=== PATIENT | female | born 1995 | race Caucasian/White ===

== ENCOUNTER 2021-05-20 14:22 | Emergency (ER) | payer OTHER, MEDICAID ==
[~2021-05-20] VITALS: Ht 157.5 cm; Wt 54.4 kg
[~2021-05-20 14:22] MED LIST: IBUPROFEN
[2021-05-20 16:01] LABS: URINE BILIRUBIN NEGATIVE (Negative); URINE BLOOD 3+ (Negative); URINE COLOR YELLOW; URINE GLUCOSE-RANDOM NEGATIVE (Negative); URINE KETONES NEGATIVE (Negative); URINE LEUKOCYTES-REFLEX NEGATIVE (Negative); URINE NITRITE-REFLEX NEGATIVE (Negative); URINE PROTEIN NEGATIVE (Negative); URINE UROBILINOGEN 0.2 E.U./dl (0.2-1.0)
[2021-05-20 16:05] LABS: URINE CLARITY HAZY
[2021-05-20 16:11] LABS: CASTS None Seen /LPF (None Seen); SQUAMOUS 0-3 Few /LPF (0-3); URINE RBC 3-10 Few /HPF (0-2); URINE WBC-REFLEX 6-15 Few /HPF (0-5)
[2021-05-20 16:12] LABS: CRYSTALS None Seen /LPF (None Seen)
[2021-05-20 16:16] LABS: CALCIUM 8.6 mg/dL (8.5-10.1); CREATININE 0.7 mg/dL (0.6-1.3); POTASSIUM 3.4 mmol/L (3.5-5.1)
[2021-05-20 16:20] LABS: APTT 28.1 Seconds (25.0-31.3); INR 1.1; PROTIME 10.9 Seconds (9.20-11.50)
[2021-05-20 16:22] LABS: ALBUMIN 4.2 g/dL (3.4-5.0); TOTAL BILIRUBIN 0.5 mg/dL (<0.1-1.0); TOTAL PROTEIN 7.2 g/dL (6.4-8.2)
[2021-05-20 16:34] LABS: HEMATOCRIT 46.5 % (37.0-47.0); HEMOGLOBIN 15.7 gm/dL (12.0-15.0); MCH 28.3 pg (26.0-34.0); MCHC 33.8 g/dL (28.0-37.0); MCV 83.6 fL (80.0-100.0); MPV 8.1 fl. (7.2-11.1); RBC 5.57 mil/uL (4.20-5.00); RDW-CV 13.1 % (10.5-14.5); WBC 10.2 thou/uL (4.0-11.0)
[2021-05-20] MEDS ORDERED: MEDROXYPROGESTE10 MG PO (17:33)
[2021-05-20] MEDS ORDERED: AMOXIL 875 MG875 M1 PO (17:36)
[2021-05-20 18:35] VITALS: BP 110/85
== END 2021-05-20 18:35 | disposition home or self-care (01) ==
LOC: M.ERS 14:22
PROVIDERS: Physician Assistant
DX: N93.8 Other specified abnormal uterine and vaginal bleeding (principal); N39.0 Urinary tract infection, site not specified